=== PATIENT | male | born 1980 | race Two or more races ===

== ENCOUNTER 2018-12-10 05:52 | Emergency (ER) | payer MEDICAID ==
[~2018-12-10] VITALS: Ht 193 cm; Wt 78.4 kg
[2018-12-10] MEDS ORDERED: IBUPROFEN 600MG TABLET PO ONE (09:00)
[2018-12-10 10:44] VITALS: BP 134/88
== END 2018-12-10 10:45 | disposition home or self-care (01) ==
LOC: ER 05:52
DX: S80.02XA Contusion of left knee, initial encounter (principal); V03.90XA Pedestrian on foot injured in collision with car, pick-up truck or van, unspecified whether traffic or nontraffic accident, initial encounter; Y93.01 Activity, walking, marching and hiking; Y92.410 Unspecified street and highway as the place of occurrence of the external cause
CPT/HCPCS: 73562; 99283